=== PATIENT | female | born 1980 | race Caucasian/White ===

== ENCOUNTER 2019-02-17 05:22 | Inpatient (IN) | payer BC ==
[~2019-02-17] VITALS: Ht 152.4 cm; Wt 65.9 kg
[2019-02-17] MEDS: D5%-LACTATED RINGERS 1,000 ML IV SCH ×2 (00:25→23:30)
[2019-02-17] MEDS ORDERED: MAGNESIUM SULF. PMX 20GM/500ML 500 ML IV ONE ×3 (06:32→23:26)
[2019-02-17] MEDS: MAGNESIUM SULF. PMX 20GM/500ML 500 ML IV SCH ×2 (06:40→23:28)
[2019-02-17] MEDS ORDERED: LACTATED RINGERS 1,000 ML IV PRN (07:28)
[2019-02-17 08:11] LABS: BASOPHILS # (AUTO) 0.05 x10^3/uL (0-0.1); BASOPHILS % (AUTO) 0 % (0-1); EOSINOPHILS % (AUTO) 0 % (1-7); LYMPHOCYTES # (AUTO) 0.81 x10^3/uL (1-3.4); LYMPHOCYTES % (AUTO) 5 % (22-44); MD NO; MEAN CORPUSCULAR HEMOGLOBIN 29.5 pg (27.0-34.8); MEAN CORPUSCULAR VOLUME 89.4 fL (80-100); MEAN PLATELET VOLUME 9.2 fL (7.4-10.4); MONOCYTES # (AUTO) 0.16 x10^3/uL (0.2-0.8); MONOCYTES % (AUTO) 1 % (2-9); NEUTROPHILS # (AUTO) 14.64 x10^3/uL (1.8-6.8); NEUTROPHILS % (AUTO) 94 % (42-75); PLATELET COUNT 259 x10^3/uL (130-400); RED BLOOD COUNT 3.96 x10^6/uL (3.82-5.3); RED CELL DISTRIBUTION WIDTH 13.2 % (9.6-15.2)
[2019-02-17 08:18] LABS: ALBUMIN 2.7 g/dL (3.4-5.0); ANION GAP 7 mmol/L (5-15); CALCIUM 8.1 mg/dL (8.5-10.1); CHLORIDE 109 mmol/L (98-107)
[2019-02-17 08:22] LABS: ALANINE AMINOTRANSFERASE 24 U/L (12-78); ALKALINE PHOSPHATASE 144 U/L (45-117); BILIRUBIN,TOTAL 0.7 mg/dL (0.2-1.0); CREATININE 0.72 mg/dL (0.55-1.02); TOTAL PROTEIN 6.5 g/dL (6.4-8.2)
[2019-02-17 08:38] LABS: MICROSCOPIC AUTO
[2019-02-17] MEDS: PENICILLIN GK 2,500,000 UNITS in DEXTROSE 5% 100 ML IVPB SCH ×4 (08:38→20:49)
[2019-02-17 08:40] LABS: CULTURE INDICATED? YES
[2019-02-17] MEDS ORDERED: PRENATAL VIT/IRON/FA 1 EACH TABLET ONE (08:49)
[2019-02-17] MEDS: PRENATAL VIT/IRON/FA 1 EACH TABLET PO SCH (08:50)
[2019-02-17] MEDS ORDERED: D5%-LACTATED RINGERS 1,000 ML IV SCH (10:00)
[2019-02-18] MEDS: PENICILLIN GK 2,500,000 UNITS in DEXTROSE 5% 100 ML IVPB SCH ×6 (01:03→20:43)
[2019-02-18] MEDS ORDERED: BETAMETHASONE 6 MG/ML, 5ML IM SCH (04:00)
[2019-02-18] MEDS ORDERED: BETAMETHASONE 6 MG/ML, 5ML IM ONE (04:41)
[2019-02-18] MEDS ORDERED: LEVOTHYROXINE 125 MCG TABLET HOMEMEDPO SCH ×2 (06:00)
[2019-02-18 08:06] VITALS: BP 107/67
[2019-02-18] MEDS ORDERED: PRENATAL VIT/IRON/FA 1 EACH TABLET ONE (08:26)
[2019-02-18] MEDS: PRENATAL VIT/IRON/FA 1 EACH TABLET PO SCH (08:28)
[2019-02-18] MEDS ORDERED: DOCUSATE 100 MG CAPSULE ONE ×2 (10:25→20:26)
[2019-02-18] MEDS: DOCUSATE 100 MG CAPSULE PO PRN ×2 (10:27→20:43)
[2019-02-18] MEDS ORDERED: MAGNESIUM SULF. PMX 20GM/500ML 500 ML IV ONE (11:22)
[2019-02-18] MEDS: D5%-LACTATED RINGERS 1,000 ML IV SCH (12:50)
[2019-02-18 15:55] VITALS: BP 106/63
[2019-02-18] MEDS ORDERED: CALCIUM CARBONATE 500 MG TAB.CHEW ONE (22:15)
[2019-02-18] MEDS ORDERED: ONDANSETRON ODT 4 MG ONE (22:16)
[2019-02-18] MEDS ORDERED: CALCIUM CARBONATE 500 MG TAB.CHEW PO PRN (22:30)
[2019-02-18] MEDS ORDERED: ONDANSETRON 4 MG TABLET PO ONE (22:30)
[2019-02-19] MEDS: PENICILLIN GK 2,500,000 UNITS in DEXTROSE 5% 100 ML IVPB SCH ×5 (00:25→17:41)
[2019-02-19] MEDS: D5%-LACTATED RINGERS 1,000 ML IV SCH ×2 (02:10→15:30)
[2019-02-19] MEDS: LEVOTHYROXINE 125 MCG TABLET HOMEMEDPO SCH (05:58)
[2019-02-19] MEDS ORDERED: MAGNESIUM SULF. PMX 20GM/500ML 500 ML IV SCH (06:30)
[2019-02-19] MEDS ORDERED: CALCIUM CARBONATE 500 MG TAB.CHEW ONE (07:26)
[2019-02-19] MEDS ORDERED: PRENATAL VIT/IRON/FA 1 EACH TABLET ONE (13:47)
[2019-02-19] MEDS: PRENATAL VIT/IRON/FA 1 EACH TABLET PO SCH (13:48)
[2019-02-19 20:20] VITALS: BP 94/58
[2019-02-19 23:00] VITALS: BP 101/62
[2019-02-20 08:00] VITALS: BP 114/68
[2019-02-20] MEDS ORDERED: PRENATAL VIT/IRON/FA 1 EACH TABLET ONE (10:04)
[2019-02-20] MEDS ORDERED: DOCUSATE 100 MG CAPSULE ONE (10:04)
[2019-02-20] MEDS: PRENATAL VIT/IRON/FA 1 EACH TABLET PO SCH (10:13)
[2019-02-20] MEDS: DOCUSATE 100 MG CAPSULE PO PRN (10:13)
[2019-02-20] MEDS: LEVOTHYROXINE 125 MCG TABLET HOMEMEDPO SCH (10:13)
== END 2019-02-20 18:20 | disposition home or self-care (01) | DRG 833 ==
LOC: LDIP 06:12
PROVIDERS: ADMIT Obstetrics & Gynecology Maternal & Fetal Medicine; ATTEND Obstetrics & Gynecology Maternal & Fetal Medicine
DX: O60.03 Preterm labor without delivery, third trimester (principal); O99.283 Endocrine, nutritional and metabolic diseases complicating pregnancy, third trimester; E06.3 Autoimmune thyroiditis; Z3A.33 33 weeks gestation of pregnancy
CPT/HCPCS: 36415; J7121; 80053; 81001; 83735; 84443; 85025; 85384; 86850; 86900; 87086; G0378; J0702; J2540; J3475